=== PATIENT | male | born 1980 | race Two or more races ===

== ENCOUNTER 2023-11-18 19:53 | Emergency (ER) | payer SELFPAY ==
[~2023-11-18] VITALS: Ht 177.8 cm; Wt 109.0 kg
[2023-11-18 19:59] VITALS: TEMP 98.7; O2SAT 98
[2023-11-18] MEDS: TETANUS, DIPHTHERIA, PERTUSSIS VAC/PF 0.5ML (>10YR OLD) IM ONE ×2 (21:36→21:49)
[2023-11-18] MEDS: BACITRACIN ZINC OINT UDPKT TOP ONE (21:49)
[2023-11-18] MEDS: LIDOCAINE HCL/PF 1% 10 MG/ML 5ML VIAL INFIL ONE (21:49)
[2023-11-18] MEDS ORDERED: NAPR500T7 PO (22:47)
[2023-11-18] MEDS ORDERED: AMOX1TAB16 MT (22:47)
[2023-11-18] MEDS: AMOXICILLIN/POTASSIUM CLAVULANATE 875/125MG TAB PO NR (22:51)
[2023-11-18] MEDS: AMOXICILLIN/POTASSIUM CLAVULANATE 875/125MG TAB PO ONE (22:51)
[2023-11-18 23:00] VITALS: BP 148/90; PULSE 89; RESP 16; O2SAT 98
== END 2023-11-18 23:01 | disposition home or self-care (01) ==
LOC: ER 19:53
DX: S61.211A Laceration without foreign body of left index finger without damage to nail, initial encounter (principal); A36.9 Diphtheria, unspecified; W54.0XXA Bitten by dog, initial encounter; Y93.89 Activity, other specified; Y92.89 Other specified places as the place of occurrence of the external cause; Y99.8 Other external cause status
CPT/HCPCS: 99284; 73140; 90715; 12002; 90471; J3490